=== PATIENT | male | born 1945 | race Caucasian/White ===

== ENCOUNTER 2024-10-11 06:38 | Day surgery (SDC) | payer MEDICARE ==
[2024-10-10 08:35] VITALS: BMI 30.8
[2024-10-11] MEDS ORDERED: PROPOFOL 20 ML ONE ×2 (08:15→08:54)
[2024-10-11] MEDS ORDERED: Lidocaine 1% PF 5 ML VIAL ONE (08:15)
== END 2024-10-11 09:43 | disposition home or self-care (01) ==
LOC: SDC 06:38
PROVIDERS: ATTEND Internal Medicine Gastroenterology
PROC: 0DBL8ZZ Excision of Transverse Colon, Via Natural or Artificial Opening Endoscopic (ICD-10-PCS; principal; 2024-10-11)
PROC: 0DBG8ZX Excision of Left Large Intestine, Via Natural or Artificial Opening Endoscopic, Diagnostic (ICD-10-PCS; 2024-10-11)
PROC: 0DBF8ZX Excision of Right Large Intestine, Via Natural or Artificial Opening Endoscopic, Diagnostic (ICD-10-PCS; 2024-10-11)
DX: D12.3 Benign neoplasm of transverse colon (principal); K57.30 Diverticulosis of large intestine without perforation or abscess without bleeding; K64.8 Other hemorrhoids; K64.4 Residual hemorrhoidal skin tags; I10 Essential (primary) hypertension; I48.91 Unspecified atrial fibrillation; E78.00 Pure hypercholesterolemia, unspecified; Z98.49 Cataract extraction status, unspecified eye; Z87.891 Personal history of nicotine dependence; Z90.49 Acquired absence of other specified parts of digestive tract; Z98.890 Other specified postprocedural states; Z88.6 Allergy status to analgesic agent; Z79.01 Long term (current) use of anticoagulants; Z79.899 Other long term (current) drug therapy
CPT/HCPCS: 45380; 45385; J2704; 88305

== ENCOUNTER 2024-12-27 11:00 | Outpatient (CLI) | payer MEDICARE | END 2024-12-27 11:01 | disposition home or self-care (01) | LOC: PET 11:00 | PROVIDERS: ATTEND Urology | DX: C61 Malignant neoplasm of prostate (principal); R93.0 Abnormal findings on diagnostic imaging of skull and head, not elsewhere classified | CPT/HCPCS: 78815; A9595 ==

== ENCOUNTER 2025-01-31 10:53 | Outpatient (CLI) | payer MEDICARE ==
[~2025-01-31 10:53] MED LIST: Iopamidol 370 76% 100 ML VIAL ONE
[2025-01-31 12:29] LABS: Estimated GFR - POC 67.0
== END 2025-01-31 10:54 | disposition home or self-care (01) ==
LOC: CT 10:53
PROVIDERS: ATTEND Internal Medicine Gastroenterology
DX: R10.9 Unspecified abdominal pain (principal); I31.39 Other pericardial effusion (noninflammatory)
CPT/HCPCS: 36415; 74177; 82565